=== PATIENT | female | born 1960 | race Caucasian/White ===

== ENCOUNTER → 2021-09-16 14:01 | Outpatient (CLI) | payer BC, SELFPAY ==
[2021-09-16 15:14] LABS: BUN Creatinine Ratio 11.9 (6-22); Blood Urea Nitrogen 10 mg/dL (7-17); Calcium 9.6 mg/dL (8.4-10.2); Carbon Dioxide 28 mmol/L (22-32); Chloride 106 mmol/L (98-107); Estimated Glomerular Filt Rate > 60.0 mL/min (>60); Glucose 94 mg/dL (80-110); HEMOLYSIS < 15 (0-50); Potassium 4.1 mmol/L (3.4-5.1); Sodium 141 mmol/L (137-145)
== END ==
PROVIDERS: Referring Provider Specialist; Visit Provider Specialist
DX: N12 Tubulo-interstitial nephritis, not specified as acute or chronic (principal); N95.2 Postmenopausal atrophic vaginitis; N39.9 Disorder of urinary system, unspecified; Z87.448 Personal history of other diseases of urinary system
CPT/HCPCS: 36415; 80048; 81002